=== PATIENT | male | born 1960 | race African-American/Black ===

== ENCOUNTER 2017-09-16 21:38 | Emergency (ER) | payer OTHER ==
[~2017-09-16] VITALS: Ht 188 cm; Wt 129.3 kg
[2017-09-16 22:58] VITALS: BP 148/107
[2017-09-16] MEDS ORDERED: HYDROcodone-ACET 10/325MG TAB PO ONE (23:30)
[2017-09-16] MEDS ORDERED: LIDOCAINE W/ EPINEPHRINE 1% 20ML VIAL ONE (23:32)
== END 2017-09-17 00:39 | disposition home or self-care (01) ==
LOC: EDBD 21:38 → ER 21:41
DX: S09.90XA Unspecified injury of head, initial encounter (principal); M54.2 Cervicalgia; M25.562 Pain in left knee; V43.52XA Car driver injured in collision with other type car in traffic accident, initial encounter; Y93.89 Activity, other specified; Y99.8 Other external cause status; Y92.410 Unspecified street and highway as the place of occurrence of the external cause
CPT/HCPCS: 70450; 72125; 73110; 73562; 93005